=== PATIENT | male | born 1950 ===

== ENCOUNTER 2020-10-28 07:41 | Day surgery (SDC) | payer OTHER | END 2020-10-28 15:15 | disposition home or self-care (01) | LOC: AMB-ENDOS 07:41 | PROVIDERS: ATTEND Colon & Rectal Surgery | DX: D12.2 Benign neoplasm of ascending colon (principal); D12.4 Benign neoplasm of descending colon; K64.1 Second degree hemorrhoids; Z20.822 Contact with and (suspected) exposure to COVID-19 ==

== ENCOUNTER 2020-12-01 09:00 | Inpatient (IN) | payer OTHER ==
[~2020-12-01] VITALS: Ht 167.6 cm; Wt 79.8 kg
[2020-12-01] MEDS ORDERED: VITAMIN D PO (10:42)
[2020-12-01] MEDS ORDERED: VITAMIN C PO (10:42)
[2020-12-07] MEDS ORDERED: VITAMIN C100 MG (14:07)
[2020-12-07] MEDS ORDERED: VITAMIN D310 MC5 (14:07)
== END 2020-12-09 23:21 | disposition home or self-care (01) | DRG 331 ==
LOC: SURH 12-07 05:45 → O/R 12-07 07:28 → SURH 12-07 09:00 → SURG 12-07 16:39 → SURH 12-07 19:07
PROVIDERS: ADMIT Colon & Rectal Surgery; ATTEND Colon & Rectal Surgery
PROC: 0DTP4ZZ Resection of Rectum, Percutaneous Endoscopic Approach (ICD-10-PCS; 2020-12-07)
PROC: 07BB4ZZ Excision of Mesenteric Lymphatic, Percutaneous Endoscopic Approach (ICD-10-PCS; 2020-12-07)
PROC: 0DBN4ZZ Excision of Sigmoid Colon, Percutaneous Endoscopic Approach (ICD-10-PCS; principal; 2020-12-07 05:45)
DX: D12.5 Benign neoplasm of sigmoid colon (principal); Z86.010 Personal history of colon polyps